=== PATIENT | female | born 1995 | race Caucasian/White ===

== ENCOUNTER 2023-02-22 17:03 | Outpatient (CLI) | payer OTHER, SELFPAY ==
--- NOTE | 2023-02-22 17:30 | CRLHL7_ITS ---
For Patients: As a result of the Century Cures Act, medical imaging exams and procedure reports are released immediately into your electronic medical record. You may view this report before your referring provider. If you have questions, please contact your health care provider. Indication: Lumbar radiculopathy radiating down the right leg Technique: Multiplanar, multisequence, MRI of the lumbar spine, obtained without contrast. Comparison: Lumbar spine x-ray 02/14/2023 Findings: Preserved lumbar lordosis. No significant spondylolisthesis. Slight chronic anterior wedge configuration of T12. No acute osseus abnormality. Multilevel degenerative Schmorl`s nodes, with Modic type 2 endplate changes at L2-3. No acute osseus abnormality. The conus medullaris terminates at L1-2. No suspicious findings identified in the paraspinal soft tissues. Included SI joints are unremarkable. T12-L1, L1-L2: No significant neural foraminal or spinal canal stenosis. L2-L3: Diffuse disc bulge. No left, mild right neural foraminal narrowing. No significant spinal canal stenosis. L3-L4: Mild diffuse disc bulge. No significant neural foraminal or spinal canal stenosis. L4-L5: Mild diffuse disc bulge with broad-based right central disc protrusion and right subarticular caudal disc extrusion, impinging the descending right L5 nerve root, with mild-moderate central spinal canal and left lateral recess narrowing. No right, mild left neural foraminal narrowing. L5-S1: No significant neural foraminal or spinal canal stenosis. Impression: 1. Lumbar spondylosis as detailed, with scattered degenerative Schmorl`s nodes and Modic type 2 endplate changes at L2-3. 2. At L4-5, broad-based right central disc protrusion and right subarticular caudal disc extrusion, impinging the descending right L5 nerve root, with mild-moderate spinal canal narrowing and mild left neural foraminal narrowing. 3. At L2-3, mild right neural foraminal narrowing. Dictated by Maryjane Taylor MD @ 02/23/2023 8:40:22 AM (Electronically Signed)
== END 2023-02-22 17:04 | disposition home or self-care (01) ==
LOC: MRI 17:04
PROVIDERS: PCP Nurse Practitioner Family; Visit Provider Nurse Practitioner Family
DX: M54.16 Radiculopathy, lumbar region (principal); M47.896 Other spondylosis, lumbar region; M51.26 Other intervertebral disc displacement, lumbar region
CPT/HCPCS: 72148